=== PATIENT | female | born 1985 | race Caucasian/White ===

== ENCOUNTER 2017-09-01 05:34 | Outpatient (CLI) | payer BC ==
[~2017-09-01] VITALS: Ht 165.1 cm; Wt 63.5 kg
[~2017-09-01 05:34] MED LIST: DICY10CA26 PO; HYOS0.1216 PO; ONDA-42 SL
== END 2017-09-01 12:22 ==
LOC: PREOP 05:34
PROVIDERS: ATTEND Obstetrics & Gynecology
DX: Z01.818 Encounter for other preprocedural examination (principal); N87.1 Moderate cervical dysplasia; N81.2 Incomplete uterovaginal prolapse; N93.8 Other specified abnormal uterine and vaginal bleeding; D64.9 Anemia, unspecified

== ENCOUNTER 2017-09-05 11:08 | Day surgery (SDC) | payer BC ==
[~2017-09-05] VITALS: Ht 165.1 cm; Wt 63.5 kg
[2017-09-05 11:20] VITALS: BP 109/67
[2017-09-05] MEDS ORDERED: FAMOTIDINE 20MG/2ML IV (PEPCID) IV ONE (11:30)
[2017-09-05] MEDS ORDERED: CATHETER FLUSH 10 ML SYR IV PRN (11:30)
[2017-09-05] MEDS ORDERED: SCOPOLAMINE 1.5 MG (TRANSDERM-SCOP) PATCH TOP ONE (11:30)
[2017-09-05] MEDS ORDERED: ONDANSETRON 4 MG/2 ML (SDV) Z0FRAN IV ONE (11:30)
[2017-09-05] MEDS ORDERED: ceFAZolin 1 GM/NS 100 ML IVPB IV ONE ×2 (11:30)
[2017-09-05 11:52] LABS: BASOPHILS % (AUTO) 1 % (0-10); EOSINOPHILS # (AUTO) 0.2 10^3/uL (0.0-0.3); EOSINOPHILS % (AUTO) 3 % (0-10); HEMATOCRIT 37 % (35-52); HEMOGLOBIN 13.2 G/DL (11.5-16.0); LYMPHOCYTES # (AUTO) 1.8 X 10^3 (1.0-4.0); LYMPHOCYTES % (AUTO) 29 % (12-44); MEAN CORPUSCULAR HEMOGLOBIN 33 PG (25-34); MEAN CORPUSCULAR HGB CONC 36 G/DL (32-36); MEAN CORPUSCULAR VOLUME 93 FL (80-99); MEAN PLATELET VOLUME 11.4 FL (7.4-10.4); MONOCYTES # (AUTO) 0.7 X 10^3 (0.0-1.0); MONOCYTES % (AUTO) 11 % (0-12); NEUTROPHILS # (AUTO) 3.7 X 10^3 (1.8-7.8); NEUTROPHILS % (AUTO) 58 % (42-75); PLATELET COUNT 203 10^3/uL (130-400); RED CELL DISTRIBUTION WIDTH 12.3 % (10.0-14.5); WHITE BLOOD COUNT 6.3 10^3/uL (4.3-11.0)
[2017-09-05] MEDS ORDERED: LACTATED RINGERS 1,000 ML IV PRN (12:12)
[2017-09-05] MEDS ORDERED: ceFAZolin INJECTION 1,000 MG in NS (IVPB) 100 ML IV ONE (12:15)
[2017-09-05] MEDS ORDERED: ONDANSETRON 4 MG/2 ML (SDV) Z0FRAN ONE (12:18)
[2017-09-05] MEDS ORDERED: LIDOCAINE PF 2% 5 ML (XYLOCAINE) VIAL ONE (12:18)
[2017-09-05] MEDS ORDERED: MIDAZOLAM 2 MG/2 ML (VERSED) VIAL ONE (12:18)
[2017-09-05] MEDS ORDERED: ROCURONIUM 10 MG/ML 5 ML SYRINGE IV ONE (12:18)
[2017-09-05] MEDS ORDERED: proPOfol 200 MG/20 ML (DIPRIVAN) VIAL IV ONE (12:18)
[2017-09-05] MEDS ORDERED: fentaNYL INJECTION 100 MCG/2 ML AMP ONE ×3 (12:18→15:33)
[2017-09-05] MEDS ORDERED: SEVOFLURANE (ULTANE) 15 ML INHAL SOLN ONE ×8 (12:23→15:42)
[2017-09-05] MEDS ORDERED: DEXAMETHASONE 10 MG/ML (DECADRON) 1 ML VIAL ONE (12:23)
[2017-09-05] MEDS: LACTATED RINGERS 1,000 ML IV PRN ×2 (12:30→14:10)
[2017-09-05] MEDS ORDERED: BUP/EPI 0.5% 1:200,000 (SENSORCAINE) 30 ML VIAL ONE (12:34)
[2017-09-05] MEDS ORDERED: ESTRADIOL VAGINAL CREAM 42.5 GM (ESTRACE) VG ONE (12:36)
--- NOTE | 2017-09-05 13:28 | Progress Note-Pre Operative ---
Pre-Operative Progress Note H&P Reviewed The H&P was reviewed, patient examined and no changes noted. Date Seen by Provider: Sep 05, 2017 Time Seen by Provider: 13:27 Date H&P Reviewed: Sep 05, 2017 Time H&P Reviewed: 13: Pre-Operative Diagnosis: LESIA III, uterovaginal prolapse and stress urinary incontinence MOUNA AUGUSTE MD Sep 05, 2017 1:28 pm
--- NOTE | 2017-09-05 13:29 | Progress Note-Post Operative ---
Post-Operative Progess Note Surgeon (s)/Carbon Accountant (s) Surgeon MOUNA AUGUSTE MD Carbon Accountant: Courtney Dolan Pre-Operative Diagnosis LESIA III, uterovaginal prolapse and stress urinary incontinence Post-Operative Diagnosis Same with pathology pending Procedure & Operative Findings Date of Procedure 09/05/17 Procedure Performed/Findings Total laparoscopic hysterectomy with bilateral salpingectomy and with anterior posterior colporrhaphy and enterocele repair concurrent with Dr. Hill performing a pubovaginal sling and cystoscopy Anesthesia Type GETA Estimated Blood Loss Estimated blood loss (mL): 200cc Specimens/Packing Specimens Removed Uterus and fallopian tubes Packing: Kerlix to the vagina MOUNA AUGUSTE MD Sep 05, 2017 13:29
[2017-09-05] MEDS ORDERED: ONDANSETRON 4 MG/2 ML (SDV) Z0FRAN IVP PRN ×2 (13:30→16:00)
[2017-09-05] MEDS ORDERED: MEPERIDINE (DEMEROL) INJ 100 MG/ML IM PRN (13:30)
[2017-09-05] MEDS ORDERED: PROMETHAZINE INJ 25 MG/ML (PHENERGAN) AMP IM PRN (13:30)
[2017-09-05] MEDS ORDERED: GLYCOPYRROLATE 0.2 MG/ML (ROBINUL) 2 ML VIAL ONE (14:45)
[2017-09-05] MEDS ORDERED: NEOSTIGMINE 1 MG/ML 5 ML SYRINGE ONE (14:45)
--- NOTE | 2017-09-05 15:18 | Progress Note-Post Operative ---
Post-Operative Progess Note Surgeon (s)/Color Artist (s) Surgeon PADMINI CASTRO MD Color Artist: MOLINA Pre-Operative Diagnosis REDD Post-Operative Diagnosis SAME Procedure & Operative Findings Date of Procedure 09/05/17 Procedure Performed/Findings PVS AND CYSTOSCOPY Anesthesia Type GENERAL Estimated Blood Loss Estimated blood loss (mL): LESS THAN 50CC Specimens/Packing Specimens Removed N/A Packing: Kerlix to the vagina PADMINI CASTRO MD Sep 05, 2017 3:17 pm
[2017-09-05] MEDS ORDERED: morphine INJ 10 MG/ML 1ML (SYR OR VIAL) ONE (15:33)
[2017-09-05] MEDS ORDERED: HYDROmorphone (DILAUDID) 2 MG/ML VIAL ONE (15:33)
[2017-09-05] MEDS: morphine INJ 10 MG/ML 1ML (SYR OR VIAL) IVP PRN ×3 (15:54→16:06)
[2017-09-05] MEDS ORDERED: HYDROmorphone (DILAUDID) 2 MG/ML VIAL IVP PRN (16:00)
[2017-09-05] MEDS ORDERED: PROMETHAZINE INJ 25 MG/ML (PHENERGAN) AMP IVP PRN (16:00)
[2017-09-05] MEDS ORDERED: fentaNYL INJECTION 100 MCG/2 ML AMP IVP PRN (16:00)
[2017-09-05] MEDS: KETOROLAC 30 MG/ML VIAL IVP SCH ×2 (16:02→23:09)
[2017-09-05 16:55] VITALS: BP 93/55
[2017-09-05 17:10] VITALS: BP 96/52
[2017-09-05] MEDS ORDERED: DOCU100C37 PO (17:19)
[2017-09-05] MEDS ORDERED: OXYC-465 PO (17:19)
[2017-09-05] MEDS ORDERED: IBUP-1780 PO (17:19)
--- NOTE | 2017-09-05 17:21 | Discharge Instructions ---
Discharge Instructions Discharge Medications New, Converted or Re-Newed RX: RX on Chart Patient Instructions Patient Instructions: As directed Return to The Hospital For: As directed Activity & Diet Discharge Diet: No Restrictions Activity as Tolerated: No Orders-Post D/C & Referrals Follow Up Appt: Return to my clinic on Friday, September 08, 2017 at 930 a.m. for staple removal Call to make follow up appt. for patient in 4 weeks. Activity: Rest for 24 hours, than as tolerated. Wound Care: May remove Band-Aid tomorrow. Replace as desired. Keep incisions clean and dry. Wash daily with soap and water. Please call in RX to patient pharmacy. Diet: As tolerated-Clear Liquids only if nauseated. Tomorrow, may shower or tub bathe as desired. No driving for 24 hours, no alcoholic beverages for 24 hours, and nothing per vagina (no tampons, douching, or intercourse) for 8 weeks. Patient to return to the clinic as soon as possible for: Temperature greater than 101F, Severe Pain, Foul discharge from incision or vagina, Excessive Bleeding (more than a period). MOUNA AUGUSTE MD Sep 05, 2017 5:21 pm
[2017-09-05] MEDS ORDERED: MEPERIDINE (DEMEROL) INJ 100 MG/ML ONE (18:10)
[2017-09-05] MEDS: D5 LR IV SOLUTION 1,000 ML IV SCH (19:30)
--- NOTE | 2017-09-05 19:39 | OPERATIVE REPORT ---
DATE OF SERVICE: 09/05/2017 PREOPERATIVE DIAGNOSIS: On my part, stress urinary incontinence. POSTOPERATIVE DIAGNOSIS: On my part, stress urinary incontinence. OPERATION PERFORMED: Pubovaginal sling and cystoscopy. SURGEON: Padmini Castro MD VACUUM DRIER TENDER: Atul Hicks MD COMPLICATIONS: None. DESCRIPTION OF PROCEDURE: After Dr. Hicks performed the first part of the surgery that he will dictate, a Santos catheter was inserted draining clear urine. The pubovaginal sling device was passed on both sides. After 3 different attempts, I was finally able to get the sling to be in good position under the mid urethra with no twist and no tension. I removed the Santos catheter, performed cystoscopy to confirm the integrity of the bladder, ureters, urethra and presence of the sling under the mid urethra. I left the bladder at least half full. I removed the cystoscope and performed manual Valsalva maneuver that was negative. I re-inserted a Santos catheter draining clear fluid and Dr. Hicks proceeded with the rest of the surgery that he will dictate. Estimated blood loss for my part less than 50 mL. No records were placed. The patient tolerated the procedure and anesthesia well, was sent to recovery room in stable condition. Job ID: [id number] DocumentID: [id number] Dictated Date: 09/05/2017 15:20:26 Wagon Driver Salesperson Date: 09/05/2017 19:39:18 Dictated By: PADMINI CASTRO MD
[2017-09-05 20:00] VITALS: BP 82/50
--- NOTE | 2017-09-05 21:14 | OPERATIVE REPORT ---
DATE OF SERVICE: 09/05/2017 PREOPERATIVE DIAGNOSES: Cervical intraepithelial neoplasia 3, uterovaginal prolapse and stress urinary incontinence. POSTOPERATIVE DIAGNOSES: Cervical intraepithelial neoplasia 3, uterovaginal prolapse, stress urinary incontinence with pathology pending and endometriosis. OPERATIVE PROCEDURE: Total laparoscopic hysterectomy with bilateral salpingo-oophorectomy as well as destruction of endometriosis implants followed by anterior and posterior vaginal repairs with enterocele repair and with Dr. Martinez performing a pubovaginal sling and cystoscopy. OPERATIVE DESCRIPTION: With the patient in the supine position under satisfactory general anesthesia, she was repositioned in dorsal lithotomy position in the [facility] and prepped and draped in the usual fashion for abdominal and vaginal surgery. The urinary bladder was drained via Santos catheter to dependent drainage. A weighted speculum placed in the posterior fornix of vagina, cervix exposed and grasped anteriorly with single tooth tenaculum. Uterus was sounded to 9.5 cm with the uterine sound. The cervix was then serially dilated with Holden dilators to accommodate a Prerna II uterine manipulator, which was placed using a 6 mm x 8 cm uterine probe and a 30 mm colpotomy ring. The cervix was affixed to the manipulator with a suture of #1 Vicryl at 3 and 9 o'clock positions. The patient was brought in low dorsal lithotomy position. A 12 mm incision was made 3 cm superior to the umbilicus. A Veress needle was placed through that incision. Correct placement confirmed with a water drop test and the abdomen insufflated with 2.4 liters of carbon dioxide. The Veress needle was removed and a 12 mm Optiview laparoscopic port placed. The abdominal wall was transilluminated and ports of 8 mm were placed 9 cm lateral to the umbilicus on each side at the level of the umbilicus. All three port sites were infiltrated with 0.25% Marcaine with epinephrine prior to incision. The patient was now placed in Trendelenburg allowing the bowel to spill up out of the pelvis. There were some adhesions of the sigmoid to the left pelvic brim, which retained the sigmoid up to that area that was dealt with later. The operative instruments were now placed after fixing the manipulator to the ports. At the console using the vessel sealer on the right and a bipolar fenestrated grasper on the left, the pelvis was first examined. There was evidence of remote tubal sterilization. Both ovaries were normal. There were endometriosis implants, particularly in the left uteroovarian fossa. The uterus was mottled in appearance consistent with adenomyosis. There were some endometriosis in the right ovarian fossa as well. Both ureters were seemed to peristalse prior to initiating procedure and eventually during and after the procedure as well. Laparoscope was rotated. The appendix was identified. It was a normal vermiform appendix. Laparoscope was brought back to the pelvis. Using the vessel sealer, the right fallopian tube was grasped and elevated. The mesosalpinx was clamped, cauterized and divided using the vessel sealer. This continued stepwise across to the uteroovarian pedicle, which was then clamped, cauterized and divided itself also with the vessel sealer. The round ligament was treated in the same manner as was the broad ligament and the cardinal ligament. The same procedure performed on the left, allowing for removal of both fallopian tubes and conservation of both ovaries. The previously mentioned adhesions of the sigmoid to the left pelvic brim were taken down with the vessel sealer as well. These were light and filmy adhesions fairly minimal dissection was required. The anterior lower uterine segment now was exposed and replacing the vessel sealer with monopolar jasmin. The anterior lower uterine segment peritoneum was divided with those jasmin. The vesicovaginal space was developed allowing the bladder to slide down off of the cervix and down off of the proximal vagina. Colpotomy incision was made starting at 12 o'clock position onto the colpotomy ring. That was continued circumferentially until the entire colpotomy ring was exposed and on completion of that, the uterus with the tubes still attached was extracted through the vagina. The vaginal cuff was closed with two sutures of V-Loc barbed sutures starting first on the right angle and continued to the midportion of the cuff and then from the left angle to the mid portion, taking care to include the cardinal ligament pedicles and uterine vessel pedicles into the initiation of that closure. Hemostasis was complete. Good reapproximation was achieved. The pelvis was irrigated and examined for hemostasis. The endometriosis implants in both ovarian fossa were touched with electrocautery to destroy them. With the procedure complete, the operative instruments were removed under direct vision as were the ports. The abdomen was evacuated and insufflating gas in the process of removing the ports. Skin incisions were closed with troy. The fascia at the umbilical incision was closed with [id number] suture of 2-0 Vicryl. Sponge and needle counts were correct at this point and estimated blood loss was minimal. The patient was now repositioned for the anterior and posterior vaginal repairs. Anterior repair was initiated by placing Tanya clamps on the anterior vaginal wall just distal to the midpoint. The vaginal wall was opened in the midline with Metzenbaum scissors. That opening was continued to approximately 1.5 cm from the urethral meatus and almost to the apex of the vagina. The vesicovaginal space was developed dissecting the bladder off the muscularis of the vagina back to pubic rami bilaterally. Endopelvic fascia and bladder wall were plicated with 2-0 Vicryl suture elevating the bladder and lengthening the urethra. At this point, I yielded care of the patient to Dr. Martinez. I remained to assist. Dr. Martinez performed a pubovaginal sling and cystoscopy. He will dictate that portion. On completion of Dr. Martinez's portion of the procedure, I resumed care of the patient, resected redundant anterior vaginal wall muscularis mucosa and then closed the vaginal wall with a running locked suture of 3-0 Vicryl Rapide. Good support was evident and good reapproximation was achieved. Good hemostasis was achieved. Posterior repair was now performed by placing Tanya clamps on the perineum and the hymenal ring at 5 to 7 o'clock positions and inverted triangle of skin was removed from the perineal body and upright triangle from the posterior vaginal floor. The rectovaginal space was entered sharply and dissected bluntly to the apex of the vagina. The rectovaginal space was explored for an enterocele that was a small one that was reduced and plicated with a 2-0 Vicryl pursestring suture obliterating the enterocele. The rectovaginal space itself was obliterated with additional suture of 2-0 Vicryl and the perineal body was restored with sutures of 2-0 Vicryl. Redundant posterior vaginal wall muscularis mucosa was removed sharply and then the vaginal wall was closed with a running lock suture of 3-0 Vicryl Rapide. With that closure, continuing down to the hymenal ring and pass the hymenal ring on the perineal body then back up subcutaneous to the hymenal ring where the suture was tied. Digital rectal exam confirmed no stricture or stenosis of the rectum and no sutures into or through the rectal mucosa. The vagina was now filled with Estrace vaginal cream and a pack of Kerlix gauze was placed. The Santos catheter was left to dependent drainage. Sponge and needle counts were again at this point correct. Estimated blood loss for the entire case was now around 200 mL. The patient tolerated the procedure well and was uneventfully awakened from her general anesthesia and transferred to the recovery room in stable condition. The sponge and needle counts again were correct. Job ID: [id number] DocumentID: [id number] Dictated Date: 09/05/2017 16:20:12 Specialty Transformer Assembler Date: 09/05/2017 21:13:21 Dictated By: MOUNA AUGUSTE MD
[2017-09-06] VITALS: BP 86/53
[2017-09-06] MEDS: D5 LR IV SOLUTION 1,000 ML IV SCH ×2 (03:19→07:55)
[2017-09-06] MEDS: oxyCODONE/APAP 10/325MG (PERCOCET 10) TABLET PO PRN ×5 (03:19→23:03)
[2017-09-06 04:00] VITALS: BP 86/50
[2017-09-06] MEDS: KETOROLAC 30 MG/ML VIAL IVP SCH ×2 (05:14→12:04)
--- NOTE | 2017-09-06 08:11 | Progress Note-Standard ---
Standard Progress Note Progress Notes/Assess & Plan Date Seen by Provider: Sep 06, 2017 Time Seen by Provider: 08:10 Progress/Assessment & Plan This patient without complaint. She is ambulating. Patient is tolerating oral intake well. Santos catheter is removed at about 6 a.m. she has not yet voided. Patient denies headache, denies shortness of breath, denies nausea vomiting, and denies chest pain. Vital Signs Date Time Temp Pulse Resp B/P (MAP) Pulse Ox O2 Delivery O2 Flow Rate FiO2 09/06/17 04:00 99.3 52 18 86/50 (62) 97 Room Air 09/06/17 00:00 97.1 58 18 86/53 (64) 98 Room Air 09/05/17 20:00 98.4 94 18 82/50 (61) 96 Room Air 09/05/17 19:39 Room Air 09/05/17 17:10 98.4 71 20 96/52 (67) 95 Room Air 09/05/17 16:55 98.4 59 18 93/55 (68) 96 Room Air 09/05/17 11:20 99.9 66 18 109/67 (81) 98 Room Air I & O 09/06/17 07:00 Intake Total 2800 ml Output Total 790 ml Balance 2010 ml Signs are stable. Patient is afebrile. The abdomen is benign. Extreme show clubbing cyanosis. There is no Homans sign. Assessment and plan is operative day number 1 doing well. Plan is for routine convalescence care with discharge home when patient is ambulating, voiding, tolerating by mouth well, and pain control is adequate. MOUNA AUGUSTE MD Sep 06, 2017 8:11 am
[2017-09-06 08:19] VITALS: BP 87/50
[2017-09-06] MEDS: BENZOCAINE/MENTHOL (DERMOPLAST) 56 ML CAN TP PRN (08:19)
[2017-09-06] MEDS: DOCUSATE SODIUM 100 MG (COLACE) CAP PO SCH ×2 (08:19→19:33)
[2017-09-06] MEDS ORDERED: INFLUENZA TRIvalent 2017-2018 0.5 ML/45 MCG SYR IM ONE (10:00)
[2017-09-06] MEDS: PHENAZOPYRIDINE 100 MG (PYRIDIUM) TABLET PO SCH ×3 (11:22→19:33)
[2017-09-06] MEDS ORDERED: IBUPROFEN 800 MG (MOTRIN) TAB PO ONE (11:53)
[2017-09-06] MEDS: IBUPROFEN 800 MG (MOTRIN) TAB PO SCH ×3 (12:03→23:43)
[2017-09-06 12:42] VITALS: BP 89/53
[2017-09-06 17:57] VITALS: BP 83/45
[2017-09-06 23:11] VITALS: BP 85/46
[2017-09-07] MEDS: oxyCODONE/APAP 10/325MG (PERCOCET 10) TABLET PO PRN ×2 (03:51→08:48)
[2017-09-07 06:00] VITALS: BP 85/44
[2017-09-07] MEDS: IBUPROFEN 800 MG (MOTRIN) TAB PO SCH ×2 (06:09→12:29)
[2017-09-07] MEDS: DOCUSATE SODIUM 100 MG (COLACE) CAP PO SCH (08:47)
[2017-09-07] MEDS: BENZOCAINE/MENTHOL (DERMOPLAST) 56 ML CAN TP PRN (08:48)
[2017-09-07] MEDS: PHENAZOPYRIDINE 100 MG (PYRIDIUM) TABLET PO SCH (08:48)
[2017-09-07 08:49] VITALS: BP 82/47
--- NOTE | 2017-09-07 09:20 | Progress Note-Standard ---
Standard Progress Note Progress Notes/Assess & Plan Date Seen by Provider: Sep 07, 2017 Time Seen by Provider: 09:18 Progress/Assessment & Plan This patient without complaint. She is ambulating. Patient is tolerating oral intake well. Santos catheter is removed at about 6 a.m. she has not yet voided. Patient denies headache, denies shortness of breath, denies nausea vomiting, and denies chest pain. Vital Signs Date Time Temp Pulse Resp B/P (MAP) Pulse Ox O2 Delivery O2 Flow Rate FiO2 09/06/17 04:00 99.3 52 18 86/50 (62) 97 Room Air 09/06/17 00:00 97.1 58 18 86/53 (64) 98 Room Air 09/05/17 20:00 98.4 94 18 82/50 (61) 96 Room Air 09/05/17 19:39 Room Air 09/05/17 17:10 98.4 71 20 96/52 (67) 95 Room Air 09/05/17 16:55 98.4 59 18 93/55 (68) 96 Room Air 09/05/17 11:20 99.9 66 18 109/67 (81) 98 Room Air I & O 09/06/17 07:00 Intake Total 2800 ml Output Total 790 ml Balance 2010 ml Signs are stable. Patient is afebrile. The abdomen is benign. Extreme show clubbing cyanosis. There is no Homans sign. Assessment and plan is operative day number 1 doing well. Plan is for routine convalescence care with discharge home when patient is ambulating, voiding, tolerating by mouth well, and pain control is adequate. September 07, 2017 Patient without complaint except for some right-sided right lower quadrant pain She is ambulating, she is voiding to some extent however has had significant postvoid residuals so far. Dr. Hill is managing the bladder. Patient has good pain control tolerating oral intake well. Plan is for discharge home on this date with follow-up in clinic Vital Signs Date Time Temp Pulse Resp B/P (MAP) Pulse Ox O2 Delivery O2 Flow Rate FiO2 09/07/17 06:00 98.7 44 16 85/44 (58) 95 Room Air 09/06/17 23:11 98.7 43 16 85/46 (59) 97 Room Air 09/06/17 17:57 98.4 46 16 83/45 (58) 99 Room Air 09/06/17 12:42 98.4 46 16 89/53 (65) 99 Room Air I & O 09/07/17 07:00 Intake Total 3310 ml Output Total 2175 ml Balance 1135 ml Vital signs are stable. Patient is afebrile. Abdomen is benign. Extremities show clubbing cyanosis. There is no Homans sign. Assessment and plan postoperative day number 2 doing well. Patient has some right-sided pain that may just be postoperative. Dr. Hill has initiated evaluation lab work of that pain. Plan will be be discharged home when patient is ambulating voiding and her pain is resolved MOUNA AUGUSTE MD Sep 07, 2017 9:20 am
[2017-09-07 09:54] LABS: BASOPHILS % (AUTO) 0 % (0-10); EOSINOPHILS % (AUTO) 0 % (0-10); HEMATOCRIT 29 % (35-52); HEMOGLOBIN 9.6 G/DL (11.5-16.0); LYMPHOCYTES # (AUTO) 3.1 X 10^3 (1.0-4.0); LYMPHOCYTES % (AUTO) 28 % (12-44); MEAN CORPUSCULAR HEMOGLOBIN 32 PG (25-34); MEAN CORPUSCULAR HGB CONC 33 G/DL (32-36); MEAN CORPUSCULAR VOLUME 98 FL (80-99); MEAN PLATELET VOLUME 11.5 FL (7.4-10.4); MONOCYTES # (AUTO) 1.1 X 10^3 (0.0-1.0); MONOCYTES % (AUTO) 10 % (0-12); NEUTROPHILS # (AUTO) 6.8 X 10^3 (1.8-7.8); NEUTROPHILS % (AUTO) 62 % (42-75); PLATELET COUNT 149 10^3/uL (130-400); RED BLOOD COUNT 2.98 10^6/uL (4.35-5.85); RED CELL DISTRIBUTION WIDTH 12.4 % (10.0-14.5); WHITE BLOOD COUNT 11.1 10^3/uL (4.3-11.0)
[2017-09-07 10:09] LABS: BUN/CREATININE RATIO 11; CALCIUM 8.7 MG/DL (8.5-10.1); CARBON DIOXIDE 26 MMOL/L (21-32); CHLORIDE 105 MMOL/L (98-107); GFR ESTIMATED > 60; GLUCOSE 90 MG/DL (70-105); POTASSIUM 3.8 MMOL/L (3.6-5.0); SODIUM 138 MMOL/L (135-145)
[2017-09-07] MEDS ORDERED: NS IV 1000 ML 1,000 ML ONE (10:30)
[2017-09-07 10:53] LABS: ALANINE AMINOTRANSFERASE 12 U/L (0-55); ALBUMIN 3.7 GM/DL (3.2-4.5); ALKALINE PHOSPHATASE 29 U/L (40-136); BILIRUBIN,TOTAL 0.2 MG/DL (0.1-1.0); BUN/CREATININE RATIO 13; CALCIUM 8.7 MG/DL (8.5-10.1); CARBON DIOXIDE 24 MMOL/L (21-32); CHLORIDE 105 MMOL/L (98-107); CREATININE SERUM 0.78 MG/DL (0.60-1.30); GFR ESTIMATED > 60; GLUCOSE 91 MG/DL (70-105); POTASSIUM 3.8 MMOL/L (3.6-5.0); SODIUM 138 MMOL/L (135-145); TOTAL PROTEIN 5.8 GM/DL (6.4-8.2)
[2017-09-07] MEDS ORDERED: NS 250 ML (IVPB) BAG IV ONE (11:00)
[2017-09-07] MEDS ORDERED: IOHEXOL 350 MG/ML 100 ML (OMNIPAQUE 350) VIAL IV ONE (11:00)
[2017-09-07] MEDS ORDERED: NS IV 1000 ML 1,000 ML IV SCH (11:15)
--- NOTE | 2017-09-07 11:41 | Diagnostic Imaging Report ---
PROCEDURE: CT abdomen and pelvis with and without contrast. TECHNIQUE: Precontrast acquisitions were acquired through the abdomen and pelvis. Multiple contiguous axial images were obtained through the abdomen and pelvis after the administration of intravenous contrast. INDICATION: Right flank pain. Decrease in hemoglobin, status post surgery. The liver, gallbladder and bile ducts are normal. The spleen, pancreas and adrenals are normal. The kidneys, ureters and bladder are normal. There is some free fluid in the dependent portion of pelvis that is of low density and does not appear to be a hematoma. There is no free fluid in the abdomen. There are bubbles of free air scattered throughout the abdomen. No acute bowel abnormality is seen. IMPRESSION: Postoperative abdomen and pelvis shows small amount of fluid in the pelvis. No hematoma or other acute abnormality is seen. Dictated by: Dictated on workstation # [id number]
[2017-09-07 12:26] VITALS: BP 88/53
[2017-09-07] MEDS ORDERED: PHEN-826 PO (12:57)
== END 2017-09-07 13:40 | disposition home or self-care (01) ==
LOC: SDC 11:08 → WS 16:55 → SDC 09-07 13:40
PROVIDERS: ATTEND Obstetrics & Gynecology
DX: D06.9 Carcinoma in situ of cervix, unspecified (principal); N81.4 Uterovaginal prolapse, unspecified; N39.3 Stress incontinence (female) (male); N80.0 Endometriosis of uterus; N80.3 Endometriosis of pelvic peritoneum; N80.2 Endometriosis of fallopian tube; D25.1 Intramural leiomyoma of uterus; N83.8 Other noninflammatory disorders of ovary, fallopian tube and broad ligament; R10.31 Right lower quadrant pain; F17.210 Nicotine dependence, cigarettes, uncomplicated
CPT/HCPCS: 36415; 74178; 80048; 80053; 84703; 85025; 86850; 86900; 86901; 87081; 94664; 94760

== ENCOUNTER 2017-09-10 14:49 | Emergency (ER) | payer BC ==
[~2017-09-10] VITALS: Ht 165.1 cm; Wt 63.5 kg
[~2017-09-10 14:49] MED LIST changes: +DOCU100C37 PO; +IBUP-1780 PO; +OXYC-465 PO; +PHEN-826 PO
--- NOTE | 2017-09-10 15:50 | ED Neurological Problem ---
General Chief Complaint: Neurological Problems Stated Complaint: LEG NUMBNESS, L SIDE NUMBNESS Nursing Triage Note: c/o numbness to right groin radiating down to left lower leg (mostly anterior). Pt had a hysterectomy with bladder sling on Friday. Onset last night. Nursing Sepsis Screen: No Definite Risk Source: patient Exam Limitations: no limitations History of Present Illness Date Seen by Provider: Sep 10, 2017 Time Seen by Provider: 15:50 Initial Comments 32-year-old female patient presents to the emergency department with complaints of left groin numbness radiating down the left lower extremity. Patient reports sudden onset last night when she had gotten up to go to the bathroom. Patient underwent hysterectomy with bladder sling by Dr. Hicks and Dr. Castro on 09/05/17. Patient reports chills and possible low-grade fevers beginning the day after surgery. Does complain of a posterior headache which started this a.m. Patient was seen by Dr. Castro yesterday with urinalysis performed in the office. Timing/Duration: increasing (worsening numbness of the left lower extremity), other (onset last night) Associated Symptoms: No confusion, No fatigue, fever/chills, No insomnia, No loss of consciousness, No muscle spasms, No nausea/vomiting, numbness in legs/ feet (numbness of the left lower extremity and left upper extremity), No paresthesia, No ringing in ears, No seizures, No sleepy, No slurred speech, trouble walking, No vision changes, weakness (left lower extremity weakness) Allergies and Home Medications Allergies Coded Allergies: No Known Drug Allergies (Unverified , 09/01/17) Home Medications Docusate Sodium 100 Mg Capsule, 100 MG PO BID Prescribed by: MOUNA DOMINGUEZ on 09/05/17 171 Ibuprofen 800 Mg Tablet, 800 MG PO Q6HR Prescribed by: MOUNA DOMINGUEZ on 09/05/17 171 Oxycodone HCl/Acetaminophen 1 Each Tablet, 1-2 TAB PO Q4HR PRN for PAIN- MODERATE TO SEVERE Prescribed by: MOUNA DOMINGUEZ on 09/05/17 171 Phenazopyridine HCl 100 Mg Tablet, 200 MG PO TID Prescribed by: LIZZETH VAZQUEZ on 09/07/17 1257 Constitutional: see HPI Eyes: No Symptoms Reported Ears, Nose, Mouth, Throat: no symptoms reported Respiratory: No cough, No dyspnea on exertion, No orthopnea, No short of breath Cardiovascular: No chest pain, No edema, No palpitations, No syncope Gastrointestinal: abdominal pain (generalized abdominal pain.), No constipation , No diarrhea, No melena, No nausea, No vomiting, No other Genitourinary: No decreased output, No dysuria, No frequency, No hematuria, No hesitancy, No incontinence, No pain Musculoskeletal: see HPI, No back pain, No neck pain Skin: no symptoms reported Psychiatric/Neurological: See HPI, Denies Cognitive Dysfunction, Headache, Numbness, Denies [place] Seizures, Denies Tonic Clonic Seizures, Unable to Move Lower Ext (patient reports only being able to move the LLE slightly.), Denies Unable to Move Upper Ext, Weakness (LLE and LUE weakness) All Other Systems Reviewed Negative Unless Noted: Yes (Negative excepted noted.) Past Czgmrrn-Vglbks-Dgwqwg Hx Patient Social History Alcohol Use: Denies Use Recreational Drug Use: No Smoking Status: Current Everyday Smoker Type Used: Cigarettes Recent Foreign Travel: No Contact w/Someone Who Travel: No Recent Infectious Disease Expo: No Recent Hopitalizations: No Immunizations Up To Date Tetanus Booster (TDap): Unknown PED Vaccines UTD: No Seasonal Allergies Seasonal Allergies: Yes Surgeries History of Surgeries: Yes Surgeries: Bladder Surgery ((sling)), Hysterectomy, Tubal Ligation Respiratory History of Respiratory Disorde: No Cardiovascular History of Cardiac Disorders: No Neurological History of Neurological Disord: Yes Neurological Disorders: Headaches /Migraines Reproductive System : Yes Hx Reproductive Disorders: Yes (LESIA II, CYSYTOCELE) Sexually Transmitted Disease: No HIV/AIDS: No Female Reproductive Disorders: Menstrual Problems, Endometriosis, 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 Genitourinary History of Genitourinary Disor: No Gastrointestinal History of Gastrointestinal Di: No Musculoskeletal History of Musculoskeletal Dis: Yes Musculoskeletal Disorders: Chronic Back Pain Endocrine History of Endocrine Disorders: No HEENT Loss of Vision: Bilateral Hearing Impairment: Denies Blood Transfusions Adverse Reaction to a Blood Tr: No (N/A) Reviewed Nursing Assessment Reviewed/Agree w Nursing PMH: Yes Family Medical History Significant Family History: No Pertinent Family Hx Physical Exam Vital Signs Vital Signs - First Documented 09/10/17 15:34 Temp 98.5 Pulse 82 Resp 16 B/P (MAP) 128/72 (90) Pulse Ox 98 Capillary Refill : Greater Than 3 Seconds Progress/Results/Core Measures Results/Orders Lab Results Laboratory Tests Test 09/10/17 16:25 09/10/17 16:40 Range/Units Urine Color YELLOW Urine Clarity CLEAR Urine pH 8 5-9 Urine Specific [place] 1.015 L 1.016-1.022 Urine Protein NEGATIVE NEGATIVE Urine Glucose (UA) NEGATIVE NEGATIVE Urine Ketones NEGATIVE NEGATIVE Urine Nitrite POSITIVE H NEGATIVE Urine Bilirubin NEGATIVE NEGATIVE Urine Urobilinogen 1 NORMAL MG/DL Urine Leukocyte Esterase 3+ H NEGATIVE Urine RBC (Auto) 3+ H NEGATIVE Urine RBC 5-10 H /HPF Urine WBC 10-25 H /HPF Urine Squamous Epithelial Cells 0-2 /HPF Urine Crystals NONE /LPF Urine Bacteria FEW H /HPF Urine Casts NONE /LPF Urine Mucus NEGATIVE /LPF Urine Culture Indicated YES White Blood Count 10.4 4.3-11.0 10^3/uL Red Blood Count 3.34 L 4.35-5.85 10^6/uL Hemoglobin 10.8 L 11.5-16.0 G/DL Hematocrit 31 L 35-52 % Mean Corpuscular Volume 93 80-99 FL Mean Corpuscular Hemoglobin 32 25-34 PG Mean Corpuscular Hemoglobin Concent 35 32-36 G/DL Red Cell Distribution Width 11.9 10.0-14.5 % Platelet Count 176 130-400 10^3/uL Mean Platelet Volume 11.4 H 7.4-10.4 FL Neutrophils (%) (Auto) 71 42-75 % Lymphocytes (%) (Auto) 16 12-44 % Monocytes (%) (Auto) 12 0-12 % Eosinophils (%) (Auto) 2 0-10 % Basophils (%) (Auto) 0 0-10 % Neutrophils # (Auto) 7.4 1.8-7.8 X 10^3 Lymphocytes # (Auto) 1.6 1.0-4.0 X 10^3 Monocytes # (Auto) 1.2 H 0.0-1.0 X 10^3 Eosinophils # (Auto) 0.2 0.0-0.3 10^3/uL Basophils # (Auto) 0.0 0.0-0.1 10^3/uL Sodium Level 141 135-145 MMOL/L Potassium Level 3.6 3.6-5.0 MMOL/L Chloride Level 107 98-107 MMOL/L Carbon Dioxide Level 29 21-32 MMOL/L Anion Gap 5 5-14 MMOL/L Blood Urea Nitrogen 6 L 7-18 MG/DL Creatinine 0.65 0.60-1.30 MG/DL Estimat Glomerular Filtration Rate > 60 BUN/Creatinine Ratio 9 Glucose Level 77 70-105 MG/DL Calcium Level 9.1 8.5-10.1 MG/DL Total Bilirubin 0.6 0.1-1.0 MG/DL Aspartate Amino Transf (AST/SGOT) 19 5-34 U/L Alanine Aminotransferase (ALT/SGPT) 16 0-55 U/L Alkaline Phosphatase 31 L 40-136 U/L Total Protein 6.2 L 6.4-8.2 GM/DL Albumin 3.9 3.2-4.5 GM/DL Lipase 11 8-78 U/L My Orders Orders - BERRY TRUJILLO Cbc With Automated Diff (09/10/17 16:10) Comprehensive Metabolic Panel (09/10/17 16:10) Lipase (09/10/17 16:10) Ua Culture If Indicated (09/10/17 16:10) Saline Lock/Iv-Start (09/10/17 16:10) Ct Abdomen/Pelvis W (09/10/17 16:10) Ct Head Wo (09/10/17 16:10) Ns Iv 1000 Ml (Sodium Chloride 0.9%) (09/10/17 16:10) Iohexol Injection (Omnipaque 350 Mg/Ml 1 (09/10/17 16:30) Di Iv Start (Assessment) .on IV start (09/10/17 16:20) Ns (Ivpb) (Sodium Chloride 0.9%) (09/10/17 16:30) Pharmacy Communication (Pharmacy Communi (09/10/17 16:20) Urine Culture (09/10/17 16:25) Us Gallbladder 8[address] (09/10/17 18:19) Ua Culture If Indicated (09/10/17 18:20) Methylnaltrexone Injection (Relistor Inj (09/10/17 19:00) Ceftriaxone Injection (Rocephin Injectio (09/10/17 19:00) Ns Iv 1000 Ml (Sodium Chloride 0.9%) (09/10/17 18:56) Medications Given in ED Current Medications Medications Dose Ordered Sig/Tila Route Start Time Stop Time Status Last Admin Dose Admin Ceftriaxone Sodium 1000 mg/ Sodium Chloride 100 ml @ 200 mls/hr ONCE ONCE IV 09/10/17 19:00 09/10/17 19:29 DC 09/10/17 19:11 200 MLS/HR Iohexol 100 ml ONCE ONCE IV 09/10/17 16:30 09/10/17 16:31 DC 09/10/17 16:52 100 ML Methylnaltrexone Cecilia 12 mg ONCE ONCE SQ 09/10/17 19:00 09/10/17 19:01 DC 09/10/17 19:11 12 MG Sodium Chloride 250 ml ONCE ONCE IV 09/10/17 16:30 09/10/17 16:31 DC 09/10/17 16:52 80 ML Sodium Chloride 1,000 ml @ 0 mls/hr Q0M ONCE IV 09/10/17 16:10 09/10/17 16:13 DC 09/10/17 19:01 0 MLS/HR Vital Signs/I&O Vital Sign - Last 12Hours 09/10/17 15:34 Temp 98.5 Pulse 82 Resp 16 B/P (MAP) 128/72 (90) Pulse Ox 98 Blood Pressure Mean: 90 Departure Communication (Admissions) Progress Notes [address] Batista [address] Hicks [address] Castro Impression Impression: Primary Impression: Acute and chronic cholecystitis Additional Impressions: Acalculous cholecystitis Postoperative urinary retention Status post hysterectomy History of pubovaginal sling Urinary tract infection Disposition: HOME, SELF-CARE Condition: Improved Departure-Patient Inst. Decision time for Depature: 21:01 Referrals: MOUNA HICKS MD, TAKAAKI MD NO,LOCAL PHYSICIAN (PCP) Primary Care Physician PADMINI CASTRO MD Patient Instructions: Cholecystectomy (DC), Low Cholesterol, Saturated Fat, and Trans Fat Diet , Urinary Tract Infection, Adult (DC) Add. Discharge Instructions: All discharge instructions reviewed with patient and/or family. Voiced understanding. -Medications as instructed. -Continue the ibuprofen as instructed by Dr. Hicks. -Clear liquid diet until symptoms improve, then increase diet to a strict low- fat diet. -Continue self-catheterization as instructed by Dr. Castro for recurrent left lower extremity symptoms or bladder discomfort. -Follow-up with Dr. Hicks and Dr. Castro as previously scheduled. -Follow-up with Dr. Batista on Friday (09/12/17) at 11 a.m. for recheck and discussion of scheduling an outpatient gallbladder removal. -Return to the emergency department for worsened symptoms or any other concerns. Scripts Oxycodone HCl/Acetaminophen (Endocet 5-325 Tablet) 1 Each Tablet 1 EACH PO Q4H Y for PAIN-MODERATE TO SEVERE, #14 TAB 0 Refills Prov: BERRY TRUJILLO 09/10/17 Ondansetron (Ondansetron Odt) 8 Mg Tab.rapdis 8 MG PO Q6H Y for NAUSEA/VOMITING-1ST LINE, #10 TAB 0 Refills Prov: BERRY TRUJILLO 09/10/17 Metronidazole (Metronidazole) 500 Mg Tablet 500 MG PO TID, #30 TAB 0 Refills Prov: BERRY TRUJILLO 09/10/17 Ciprofloxacin HCl (Ciprofloxacin HCl) 500 Mg Tablet 500 MG PO BID, #20 TAB 0 Refills Prov: BERRY TRUJILLO 09/10/17 BERRY TRUJILLO Sep 10, 2017 15:50
[2017-09-10] MEDS ORDERED: NS IV 1000 ML 1,000 ML IV ONE (16:10)
[2017-09-10] MEDS ORDERED: IOHEXOL 350 MG/ML 100 ML (OMNIPAQUE 350) VIAL IV ONE (16:30)
[2017-09-10] MEDS ORDERED: NS 250 ML (IVPB) BAG IV ONE (16:30)
[2017-09-10 16:37] LABS: BILIRUBIN,URINE NEGATIVE (NEGATIVE); CLARITY,URINE CLEAR; COLOR,URINE YELLOW; GLUCOSE, URINE (UA) NEGATIVE (NEGATIVE); KETONES,URINE NEGATIVE (NEGATIVE); LEUKOCYTE ESTERASE ,URINE 3+ (NEGATIVE); NITRITE,URINE POSITIVE (NEGATIVE); PH,URINE 8 (5-9); PROTEIN,URINE NEGATIVE (NEGATIVE); UROBILINOGEN,URINE 1 MG/DL (NORMAL)
[2017-09-10 16:44] LABS: BACTERIA,URINE FEW /HPF; SQUAMOUS EPITHELIAL CELL,UR 0-2 /HPF
[2017-09-10 16:51] LABS: BASOPHILS % (AUTO) 0 % (0-10); EOSINOPHILS # (AUTO) 0.2 10^3/uL (0.0-0.3); EOSINOPHILS % (AUTO) 2 % (0-10); HEMATOCRIT 31 % (35-52); HEMOGLOBIN 10.8 G/DL (11.5-16.0); LYMPHOCYTES # (AUTO) 1.6 X 10^3 (1.0-4.0); LYMPHOCYTES % (AUTO) 16 % (12-44); MEAN CORPUSCULAR HEMOGLOBIN 32 PG (25-34); MEAN CORPUSCULAR HGB CONC 35 G/DL (32-36); MEAN CORPUSCULAR VOLUME 93 FL (80-99); MEAN PLATELET VOLUME 11.4 FL (7.4-10.4); MONOCYTES # (AUTO) 1.2 X 10^3 (0.0-1.0); MONOCYTES % (AUTO) 12 % (0-12); NEUTROPHILS # (AUTO) 7.4 X 10^3 (1.8-7.8); NEUTROPHILS % (AUTO) 71 % (42-75); PLATELET COUNT 176 10^3/uL (130-400); RED BLOOD COUNT 3.34 10^6/uL (4.35-5.85); RED CELL DISTRIBUTION WIDTH 11.9 % (10.0-14.5); WHITE BLOOD COUNT 10.4 10^3/uL (4.3-11.0)
--- NOTE | 2017-09-10 17:10 | Diagnostic Imaging Report ---
PROCEDURE: CT head without contrast. TECHNIQUE: Multiple contiguous axial images were obtained through the brain without the use of intravenous contrast. INDICATION: Head pressure on the left. COMPARISON: No prior examinations are available for comparison. FINDINGS: The ventricles and sulci are within normal limits. There is no hydrocephalus or cerebral edema. There is no midline shift or mass effect. There is no intracranial mass, hemorrhage, or extra-axial fluid collection. The visualized paranasal sinuses and mastoid air cells are clear. There are no regional areas of decreased attenuation appreciated to suggest an acute CVA. IMPRESSION: No acute intracranial abnormality. Dictated by: Dictated on workstation # [id number]
[2017-09-10 17:14] LABS: ALANINE AMINOTRANSFERASE 16 U/L (0-55); ALBUMIN 3.9 GM/DL (3.2-4.5); ALKALINE PHOSPHATASE 31 U/L (40-136); BILIRUBIN,TOTAL 0.6 MG/DL (0.1-1.0); BUN/CREATININE RATIO 9; CALCIUM 9.1 MG/DL (8.5-10.1); CARBON DIOXIDE 29 MMOL/L (21-32); CHLORIDE 107 MMOL/L (98-107); CREATININE SERUM 0.65 MG/DL (0.60-1.30); GFR ESTIMATED > 60; GLUCOSE 77 MG/DL (70-105); LIPASE 11 U/L (8-78); POTASSIUM 3.6 MMOL/L (3.6-5.0); SODIUM 141 MMOL/L (135-145); TOTAL PROTEIN 6.2 GM/DL (6.4-8.2)
--- NOTE | 2017-09-10 17:21 | Diagnostic Imaging Report ---
PROCEDURE: CT abdomen and pelvis with contrast. TECHNIQUE: Multiple contiguous axial images were obtained through the abdomen and pelvis after administration of intravenous contrast. INDICATION: Left leg numbness, weakness, recent hysterectomy and bladder sling. COMPARISON: 09/07/2017. FINDINGS: There has been reduction in presumed postoperative pneumoperitoneum when compared to the prior. Pelvic free fluid shows slight reduction in volume and decreased complexity. No loculated fluid collection. The urinary bladder is unremarkable. No acute osseous abnormality. No paraspinal mass or fluid collection. Urinary tracts are unobstructed. Delayed images show no urinary tract contrast extravasation. The urinary bladder appears intact. No vascular contrast extravasation. No bowel ileus or bowel obstruction. Lumbar spinal canal is patent. No appreciable foraminal encroachment. Slight basilar atelectasis. IMPRESSION: Decreased postoperative air and fluid. No bowel, biliary or urinary tract obstruction. No loculated fluid collection or abscess. No mass effect, paraspinal or perineural abnormality to explain the presenting complaint of left leg numbness. Dictated by: Dictated on workstation # [id number]
[2017-09-10] MEDS ORDERED: NS IV 1000 ML 1,000 ML ONE (18:56)
[2017-09-10] MEDS ORDERED: cefTRIAXone INJECTION 1,000 MG in NS (IVPB) 100 ML IV ONE (19:00)
[2017-09-10] MEDS ORDERED: METHYLNALTREXONE 12 MG/0.6 ML (RELISTOR) VIAL SQ ONE (19:00)
--- NOTE | 2017-09-10 20:29 | Diagnostic Imaging Report ---
PROCEDURE: US Gallbladder. TECHNIQUE: Multiple real-time grayscale images were obtained over the right upper quadrant in various projections. INDICATION: Right upper quadrant pain after recent hysterectomy. FINDINGS: The liver is normal in size without focal lesions. There is no cholelithiasis. There is some focal gallbladder wall thickening up to 3.3 mm with a small amount of pericholecystic fluid. There is no biliary duct dilatation. The common bile duct measures less than 5 mm. Pancreas is not well-seen due to bowel gas. Right kidney is normal. There is some right upper quadrant discomfort during the exam. IMPRESSION: Focal gallbladder wall thickening with some pericholecystic fluid. There is also right upper quadrant discomfort during the exam. There is no evidence of cholelithiasis although the possibility of acute acalculous cholecystitis cannot be excluded. Recommend clinical correlation. Dictated by: Dictated on workstation # [id number]
[2017-09-10] MEDS ORDERED: CIPR500T4 PO (21:04)
[2017-09-10] MEDS ORDERED: ONDA8TAB13 PO (21:04)
[2017-09-10] MEDS ORDERED: OXYC-188 PO (21:04)
[2017-09-10] MEDS ORDERED: METR500T21 PO (21:04)
[2017-09-10 21:11] VITALS: BP 100/70
== END 2017-09-10 21:11 | disposition home or self-care (01) ==
LOC: EDUNIT# 14:49 → ER 14:51
DX: K81.2 Acute cholecystitis with chronic cholecystitis (principal); R48.8 Other symbolic dysfunctions; N99.89 Other postprocedural complications and disorders of genitourinary system; R33.8 Other retention of urine; G43.909 Migraine, unspecified, not intractable, without status migrainosus; F17.210 Nicotine dependence, cigarettes, uncomplicated; Z96.0 Presence of urogenital implants; Z90.710 Acquired absence of both cervix and uterus; Z87.440 Personal history of urinary (tract) infections; Z98.51 Tubal ligation status; Z87.42 Personal history of other diseases of the female genital tract
CPT/HCPCS: 36415; 51701; 70450; 74177; 76705; 80053; 81000; 83690; 85025; 87088; 96361; 96365; 96372

== ENCOUNTER 2017-09-16 05:51 | Outpatient (CLI) | payer BC ==
[~2017-09-16] VITALS: Ht 165.1 cm; Wt 64.4 kg
[~2017-09-16 05:51] MED LIST changes: +CIPR500T4 PO; +METR500T21 PO; +ONDA8TAB13 PO; +OXYC-188 PO
[2017-09-17] MEDS ORDERED: HYDR-34 PO (16:59)
== END 2017-09-16 09:51 ==
LOC: PREOP 05:51
PROVIDERS: ATTEND Surgery
DX: K81.1 Chronic cholecystitis (principal)

== ENCOUNTER 2017-09-17 13:01 | Day surgery (SDC) | payer BC ==
[~2017-09-17] VITALS: Ht 165.1 cm; Wt 64.4 kg
--- OUTSIDE RECORDS SUMMARY | 2017-09-17 13:07 | XMS REPORT | Continuity of Care Document ---
Author Author [facility] Organization [facility] Address Unknown Phone Unavailable Allergies Active Description Code Type Severity Reaction Onset Reported/Identified Relationship to Patient Clinical Status Yes NKANo Known Allergies NKA Miscellaneous Allergy Unknown N/A 03/24/2007 Yes No Known Drug Allergies [id number] Drug Allergy Unknown N/A 09/01/2017 Medications There is no data. 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.9 CARCINOMA IN SITU OF CERVIX, UNSPECIFIED 09/07/2017 MOUNA AUGUSTE MD, Ot D25.1 INTRAMURAL LEIOMYOMA OF UTERUS 09/07/2017 MOUNA AUGUSTE MD, Ot F17.210 NICOTINE DEPENDENCE, CIGARETTES, UNCOMPL 09/07/2017 MOUNA AUGUSTE MD, Ot N39.3 STRESS INCONTINENCE (FEMALE) (MALE) 09/07/2017 MOUNA AUGUSTE MD Ot N80.0 ENDOMETRIOSIS OF UTERUS 09/07/2017 MOUNA AUGUSTE MD, Ot 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.2 ENDOMETRIOSIS OF FALLOPIAN TUBE 09/07/2017 MOUNA AUGUSTE MD, Ot N80.3 ENDOMETRIOSIS OF PELVIC PERITONEUM 09/07/2017 MOUNA AUGUSTE MD, Ot N81.4 UTEROVAGINAL PROLAPSE, UNSPECIFIED 09/07/2017 MOUNA AUGUSTE MD, Ot N83.8 OTH NONINFLAMMATORY DISORD OF OVARY, FAL 09/07/2017 MOUNA AUGUSTE MD, Ot R10.31 RIGHT LOWER QUADRANT PAIN 09/09/2017 MOUNA AUGUSTE MD, Ot D06.9 CARCINOMA IN SITU OF CERVIX, UNSPECIFIED 09/09/2017 MOUNA AUGUSTE MD, Ot D25.1 INTRAMURAL LEIOMYOMA OF UTERUS 09/09/2017 MOUNA AUGUSTE MD, Ot F17.210 NICOTINE DEPENDENCE, CIGARETTES, UNCOMPL 09/09/2017 MOUNA AUGUSTE MD, Ot N39.3 STRESS INCONTINENCE (FEMALE) (MALE) 09/09/2017 MOUNA AUGUSTE MD, Ot N80.0 ENDOMETRIOSIS OF UTERUS 09/09/2017 MOUNA AUGUSTE MD, Ot 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 Results Test Result Range Urine beta human chorionic gonadotropin (hCG) measurement - 09/05/17 11:15 Urine beta human chorionic gonadotropin (hCG) measurement NEGATIVE NEGATIVE Complete blood count (CBC) with automated white blood cell (WBC) differential - 09/05/17 11:40 Blood leukocytes automated count (number/volume) 6.3 10*3/uL 4.3-11.0 Blood erythrocytes automated count (number/volume) 4.00 10*6/uL 4.35-5.85 Venous blood hemoglobin measurement (mass/volume) 13.2 g/dL 11.5-16.0 Blood hematocrit (volume fraction) 37 % 35-52 Automated erythrocyte mean corpuscular volume 93 [foz_us] 80-99 Automated erythrocyte mean corpuscular hemoglobin (mass per erythrocyte) 33 pg 25-34 Automated erythrocyte mean corpuscular hemoglobin concentration measurement ( mass/volume) 36 g/dL 32-36 Automated erythrocyte distribution width ratio 12.3 % 10.0-14.5 Automated blood platelet count (count/volume) 203 10*3/uL 130-400 Automated blood platelet mean volume measurement 11.4 [foz_us] 7.4-10.4 Automated blood neutrophils/100 leukocytes 58 % 42-75 Automated blood lymphocytes/100 leukocytes 29 % 12-44 Blood monocytes/100 leukocytes 11 % 0-12 Automated blood eosinophils/100 leukocytes 3 % 0-10 Automated blood basophils/100 leukocytes 1 % 0-10 Blood neutrophils automated count (number/volume) 3.7 10*3 1.8-7.8 Blood lymphocytes automated count (number/volume) 1.8 10*3 1.0-4.0 Blood monocytes automated count (number/volume) 0.7 10*3 0.0-1.0 Automated eosinophil count 0.2 10*3/uL 0.0-0.3 Automated blood basophil count (count/volume) 0.0 10*3/uL 0.0-0.1 Blood type T Indirect antibody screen panel - 09/05/17 11:40 ABO+Rh group AN [facility] Transfusion band number [id number] [facility] Blood group antibody screen NEGATIVE [facility] Methicillin resistant Staphylococcus aureus (MRSA) screening culture - 11:45 Methicillin resistant Staphylococcus aureus (MRSA) screening culture NEG [facility] Complete blood count (CBC) with automated white blood cell (WBC) differential - 09/07/17 09:41 Blood leukocytes automated count (number/volume) 11.1 10*3/uL 4.3-11.0 Blood erythrocytes automated count (number/volume) 2.98 10*6/uL 4.35-5.85 Venous blood hemoglobin measurement (mass/volume) 9.6 g/dL 11.5-16.0 Blood hematocrit (volume fraction) 29 % 35-52 Automated erythrocyte mean corpuscular volume 98 [foz_us] 80-99 Automated erythrocyte mean corpuscular hemoglobin (mass per erythrocyte) 32 pg 25-34 Automated erythrocyte mean corpuscular hemoglobin concentration measurement ( mass/volume) 33 g/dL 32-36 Automated erythrocyte distribution width ratio 12.4 % 10.0-14.5 Automated blood platelet count (count/volume) 149 10*3/uL 130-400 Automated blood platelet mean volume measurement 11.5 [foz_us] 7.4-10.4 Automated blood neutrophils/100 leukocytes 62 % 42-75 Automated blood lymphocytes/100 leukocytes 28 % 12-44 Blood monocytes/100 leukocytes 10 % 0-12 Automated blood eosinophils/100 leukocytes 0 % 0-10 Automated blood basophils/100 leukocytes 0 % 0-10 Blood neutrophils automated count (number/volume) 6.8 10*3 1.8-7.8 Blood lymphocytes automated count (number/volume) 3.1 10*3 1.0-4.0 Blood monocytes automated count (number/volume) 1.1 10*3 0.0-1.0 Automated eosinophil count 0.0 10*3/uL 0.0-0.3 Automated blood basophil count (count/volume) 0.0 10*3/uL 0.0-0.1 Whole blood basic metabolic panel - 09/07/17 09:41 Serum or plasma sodium measurement (moles/volume) 138 mmol/L 135-145 Serum or plasma potassium measurement (moles/volume) 3.8 mmol/L 3.6-5.0 Serum or plasma chloride measurement (moles/volume) 105 mmol/L 98-107 Carbon dioxide 26 mmol/L 21-32 Serum or plasma anion gap determination (moles/volume) 7 mmol/L 5-14 Serum or plasma urea nitrogen measurement (mass/volume) 9 mg/dL 7-18 Serum or plasma creatinine measurement (mass/volume) 0.80 mg/dL 0.60-1.30 Serum or plasma urea nitrogen/creatinine mass ratio 11 NRG Serum or plasma creatinine measurement with calculation of estimated glomerular filtration rate > NRG Serum or plasma glucose measurement (mass/volume) 90 mg/dL 70-105 Serum or plasma calcium measurement (mass/volume) 8.7 mg/dL 8.5-10.1 Comprehensive metabolic panel - 09/07/17 09:41 Serum or plasma sodium measurement (moles/volume) 138 mmol/L 135-145 Serum or plasma potassium measurement (moles/volume) 3.8 mmol/L 3.6-5.0 Serum or plasma chloride measurement (moles/volume) 105 mmol/L 98-107 Carbon dioxide 24 mmol/L 21-32 Serum or plasma anion gap determination (moles/volume) 9 mmol/L 5-14 Serum or plasma urea nitrogen measurement (mass/volume) 10 mg/dL 7-18 Serum or plasma creatinine measurement (mass/volume) 0.78 mg/dL 0.60-1.30 Serum or plasma urea nitrogen/creatinine mass ratio 13 NRG Serum or plasma creatinine measurement with calculation of estimated glomerular filtration rate > NRG Serum or plasma glucose measurement (mass/volume) 91 mg/dL 70-105 Serum or plasma calcium measurement (mass/volume) 8.7 mg/dL 8.5-10.1 Serum or plasma total bilirubin measurement (mass/volume) 0.2 mg/dL 0.1-1.0 Serum or plasma alkaline phosphatase measurement (enzymatic activity/volume) 29 U/L 40-136 Serum or plasma aspartate aminotransferase measurement (enzymatic activity/ volume) 19 U/L 5-34 Serum or plasma alanine aminotransferase measurement (enzymatic activity/volume ) 12 U/L 0-55 Serum or plasma protein measurement (mass/volume) 5.8 g/dL 6.4-8.2 Serum or plasma albumin measurement (mass/volume) 3.7 g/dL 3.2-4.5 Complete urinalysis with reflex to culture - 09/10/17 16:25 Urine color determination YELLOW NRG Urine clarity determination CLEAR NRG Urine pH measurement by test strip 8 5-9 Specific gravity of urine by test strip 1.015 1.016- 1.022 Urine protein assay by test strip, semi-quantitative NEGATIVE NEGATIVE Urine glucose detection by automated test strip NEGATIVE NEGATIVE Erythrocytes detection in urine sediment by light microscopy 3+ NEGATIVE Urine ketones detection by automated test strip NEGATIVE NEGATIVE Urine nitrite detection by test strip POSITIVE NEGATIVE Urine total bilirubin detection by test strip NEGATIVE NEGATIVE Urine urobilinogen measurement by automated test strip (mass/volume) 1 mg/dL NORMAL Urine leukocyte esterase detection by dipstick 3+ NEGATIVE Automated urine sediment erythrocyte count by microscopy (number/high power field) [HPF] NRG Automated urine sediment leukocyte count by microscopy (number/high power field ) [HPF] NRG Bacteria detection in urine sediment by light microscopy FEW NRG Squamous epithelial cells detection in urine sediment by light microscopy 0-2 NRG Crystals detection in urine sediment by light microscopy NONE NRG Casts detection in urine sediment by light microscopy NONE NRG Mucus detection in urine sediment by light microscopy NEGATIVE NRG Complete urinalysis with reflex to culture YES NRG Bacterial urine culture - 09/10/17 16:25 URINE CULTURE RESULTS 10,000/ML - 100,000/ML NRG Complete blood count (CBC) with automated white blood cell (WBC) differential - 09/10/17 16:40 Blood leukocytes automated count (number/volume) 10.4 10*3/uL 4.3-11.0 Blood erythrocytes automated count (number/volume) 3.34 10*6/uL 4.35-5.85 Venous blood hemoglobin measurement (mass/volume) 10.8 g/dL 11.5-16.0 Blood hematocrit (volume fraction) 31 % 35-52 Automated erythrocyte mean corpuscular volume 93 [foz_us] 80-99 Automated erythrocyte mean corpuscular hemoglobin (mass per erythrocyte) 32 pg 25-34 Automated erythrocyte mean corpuscular hemoglobin concentration measurement ( mass/volume) 35 g/dL 32-36 Automated erythrocyte distribution width ratio 11.9 % 10.0-14.5 Automated blood platelet count (count/volume) 176 10*3/uL 130-400 Automated blood platelet mean volume measurement 11.4 [foz_us] 7.4-10.4 Automated blood neutrophils/100 leukocytes 71 % 42-75 Automated blood lymphocytes/100 leukocytes 16 % 12-44 Blood monocytes/100 leukocytes 12 % 0-12 Automated blood eosinophils/100 leukocytes 2 % 0-10 Automated blood basophils/100 leukocytes 0 % 0-10 Blood neutrophils automated count (number/volume) 7.4 10*3 1.8-7.8 Blood lymphocytes automated count (number/volume) 1.6 10*3 1.0-4.0 Blood monocytes automated count (number/volume) 1.2 10*3 0.0-1.0 Automated eosinophil count 0.2 10*3/uL 0.0-0.3 Automated blood basophil count (count/volume) 0.0 10*3/uL 0.0-0.1 Comprehensive metabolic panel - 09/10/17 16:40 Serum or plasma sodium measurement (moles/volume) 141 mmol/L 135-145 Serum or plasma potassium measurement (moles/volume) 3.6 mmol/L 3.6-5.0 Serum or plasma chloride measurement (moles/volume) 107 mmol/L 98-107 Carbon dioxide 29 mmol/L 21-32 Serum or plasma anion gap determination (moles/volume) 5 mmol/L 5-14 Serum or plasma urea nitrogen measurement (mass/volume) 6 mg/dL 7-18 Serum or plasma creatinine measurement (mass/volume) 0.65 mg/dL 0.60-1.30 Serum or plasma urea nitrogen/creatinine mass ratio 9 NRG Serum or plasma creatinine measurement with calculation of estimated glomerular filtration rate > NRG Serum or plasma glucose measurement (mass/volume) 77 mg/dL 70-105 Serum or plasma calcium measurement (mass/volume) 9.1 mg/dL 8.5-10.1 Serum or plasma total bilirubin measurement (mass/volume) 0.6 mg/dL 0.1-1.0 Serum or plasma alkaline phosphatase measurement (enzymatic activity/volume) 31 U/L 40-136 Serum or plasma aspartate aminotransferase measurement (enzymatic activity/ volume) 19 U/L 5-34 Serum or plasma alanine aminotransferase measurement (enzymatic activity/volume ) 16 U/L 0-55 Serum or plasma protein measurement (mass/volume) 6.2 g/dL 6.4-8.2 Serum or plasma albumin measurement (mass/volume) 3.9 g/dL 3.2-4.5 Lipase - 09/10/17 16:40 Lipase 11 U/L 8-78 Encounters ACCT No. Visit Date/Time Discharge Status Pt. Type Provider Facility Loc./Unit Complaint [id number] 09/10/2017 14:51:00 09/10/2017 21:11:00 DIS Emergency BERRY HOOPER [facility] ER LEG NUMBNESS, L SIDE NUMBNESS [id number] 09/05/2017 11:08:00 09/07/2017 13:40:00 DIS Outpatient MOUNA AUGUSTE MD [facility] CIN3,CYSTOCELE, DUB [id number] 09/01/2017 05:34:00 09/01/2017 12:22:00 DIS Outpatient MOUNA AUGUSTE MD [facility] PREOP CIN3,CYSTOCELE, DUB [id number] 02/03/2014 13:46:00 02/03/2014 15:42:00 DIS Emergency HENRY THOMPSON APRN [facility] ER VOMITING/DIARRHEA
[2017-09-17 13:08] VITALS: BP 116/61
[2017-09-17] MEDS ORDERED: LACTATED RINGERS 1,000 ML IV PRN (13:23)
[2017-09-17] MEDS ORDERED: FAMOTIDINE 20MG/2ML IV (PEPCID) IV ONE (13:30)
[2017-09-17] MEDS ORDERED: SCOPOLAMINE 1.5 MG (TRANSDERM-SCOP) PATCH TOP ONE (13:30)
[2017-09-17] MEDS ORDERED: ONDANSETRON 4 MG/2 ML (SDV) Z0FRAN IV ONE (13:30)
[2017-09-17] MEDS ORDERED: ceFAZolin INJECTION 1,000 MG in NS (IVPB) 100 ML IV ONE (13:30)
[2017-09-17] MEDS ORDERED: proPOfol 200 MG/20 ML (DIPRIVAN) VIAL IV ONE (13:31)
[2017-09-17] MEDS ORDERED: SEVOFLURANE (ULTANE) 15 ML INHAL SOLN ONE ×5 (13:31→16:53)
[2017-09-17] MEDS ORDERED: ROCURONIUM 10 MG/ML 5 ML SYRINGE IV ONE (13:31)
[2017-09-17] MEDS ORDERED: LIDOCAINE PF 2% 5 ML (XYLOCAINE) VIAL ONE (13:31)
[2017-09-17] MEDS ORDERED: DEXAMETHASONE 10 MG/ML (DECADRON) 1 ML VIAL ONE (13:31)
[2017-09-17] MEDS ORDERED: fentaNYL INJECTION 100 MCG/2 ML AMP ONE ×2 (13:32→16:17)
[2017-09-17] MEDS ORDERED: MIDAZOLAM 2 MG/2 ML (VERSED) VIAL ONE (13:32)
[2017-09-17] MEDS: LACTATED RINGERS 1,000 ML IV PRN ×3 (13:58→16:20)
--- NOTE | 2017-09-17 14:26 | Progress Note-Pre Operative ---
Pre-Operative Progress Note H&P Reviewed The H&P was reviewed, patient examined and no changes noted. Date Seen by Provider: Sep 17, 2017 Time Seen by Provider: 14:15 Date H&P Reviewed: Sep 17, 2017 Time H&P Reviewed: 14:15 Pre-Operative Diagnosis: chronic cholecystitis VLADIMIR MATTHEWS MD Sep 17, 2017 2:26 pm
[2017-09-17] MEDS ORDERED: ACETAMINOPHEN 325 MG TABLET/CAPLET (TYLENOL) PO PRN (14:30)
[2017-09-17] MEDS ORDERED: morphine INJ 10 MG/ML 1ML (SYR OR VIAL) IVP PRN (14:30)
[2017-09-17] MEDS ORDERED: ONDANSETRON 4 MG/2 ML (SDV) Z0FRAN IVP PRN ×2 (14:30→17:15)
[2017-09-17] MEDS ORDERED: HYDROcodone/APAP 5 MG/325 MG (LORTAB) TAB PO ONE (14:30)
[2017-09-17] MEDS ORDERED: BUP/EPI 0.5% 1:200,000 (SENSORCAINE) 30 ML VIAL ONE (14:54)
[2017-09-17] MEDS ORDERED: MEPERIDINE (DEMEROL) INJ 50 MG/ML ONE (16:15)
[2017-09-17] MEDS ORDERED: HYDROmorphone (DILAUDID) 2 MG/ML VIAL ONE (16:16)
[2017-09-17] MEDS ORDERED: GLYCOPYRROLATE 0.2 MG/ML (ROBINUL) 2 ML VIAL ONE (16:33)
[2017-09-17] MEDS ORDERED: ESMOLOL 100 MG/10 ML (BREVIBLOC) VIAL ONE (16:33)
[2017-09-17] MEDS ORDERED: NEOSTIGMINE 1 MG/ML 5 ML SYRINGE ONE (16:33)
--- NOTE | 2017-09-17 16:58 | Progress Note-Post Operative ---
Post-Operative Progess Note Surgeon (s)/Shoe Repair Supervisor (s) Surgeon VLADIMIR MATTHEWS MD Shoe Repair Supervisor: aylin morel STEEL P[employer]ER Pre-Operative Diagnosis chronic cholecystitis Post-Operative Diagnosis same Procedure & Operative Findings Date of Procedure 09/17/17 Procedure Performed/Findings laparoscopic cholecystectomy Anesthesia Type GET Estimated Blood Loss Estimated blood loss (mL): minimal Specimens/Packing Specimens Removed gallbladder VLADIMIR MATTHEWS MD Sep 17, 2017 4:58 pm
[2017-09-17] MEDS ORDERED: HYDR-34 PO (16:59)
--- NOTE | 2017-09-17 17:01 | Discharge Inst-Surgical ---
D/C Lap Instructions-CASSIE New, Converted, or Re-Newed RX: RX on Chart Follow Up Appt in 2 weeks Activity as tolerated No driving for 24 hours No [address] while on pain medications Incentive Spirometry use every 2 hours while awake Regular Diet Symptoms to Report: Fever over 101 degree F, Nausea/Vomiting Infection Signs and Symptoms to report: Increased redness, Foul odor of wound, Increased drainage Bathing instructions: May shower Operative Area Clean/Dry; Keep incision clean/dry If any problems/questions: Contact your physician or go to Emergency Room VLADIMIR MATTHEWS MD Sep 17, 2017 5:01 pm
[2017-09-17] MEDS ORDERED: fentaNYL INJECTION 100 MCG/2 ML AMP IVP PRN (17:15)
[2017-09-17] MEDS ORDERED: MEPERIDINE (DEMEROL) INJ 50 MG/ML IVP PRN (17:15)
[2017-09-17 17:49] VITALS: BP 114/65
--- NOTE | 2017-09-17 18:27 | Anesthesia-General Post-Op ---
General Patient Condition Mental Status/LOC: Same as Preop Cardiovascular: Satisfactory Nausea/Vomiting: Absent Respiratory: Satisfactory Pain: Controlled Complications: Absent Post Op Complications Complications None Follow Up Care/Instructions Patient Instructions None needed. Anesthesia/Patient Condition Patient Condition Patient is doing well, no complaints, stable vital signs, no apparent adverse anesthesia problems. No complications reported per nursing. GAURI MENDOZA CRNA Sep 17, 2017 18:27
[2017-09-17 18:30] VITALS: BP 109/82
[2017-09-17 19:15] VITALS: BP 107/55
[2017-09-17 19:40] VITALS: BP 107/55
--- NOTE | 2017-09-17 22:14 | OPERATIVE REPORT ---
DATE OF SERVICE: 09/17/2017 PREOPERATIVE DIAGNOSIS: Symptomatic chronic cholecystitis. POSTOPERATIVE DIAGNOSIS: Chronic acalculous cholecystitis. PROCEDURE: Laparoscopic cholecystectomy. SURGEON: Dr. Matthews. ANESTHESIA: General endotracheal. ESTIMATED BLOOD LOSS: Minimal. FINDINGS: Chronic mild gallbladder wall inflammation with thick bile. No gallstones. Normal appearing liver. DISPOSITION: The patient tolerated the procedure well. INDICATIONS: The patient is a 32-year-old female who underwent a partial hysterectomy as well as bladder suspension procedure approximately 2 weeks ago. She reports that after the surgery, she presented with pain in the right upper abdominal quadrant. An ultrasound was performed which showed gallbladder wall thickening as well as pericholecystic fluid consistent with a chronic acalculous cholecystitis. Upon further questioning, she reports that she may have had some minor episodes before in the past. Due to her previous surgery and lack of p.o. intake, this most likely caused a biliary stasis and the symptomatic chronic acalculous cholecystitis. DESCRIPTION OF PROCEDURE: The patient was brought to the operating room, laid supine on the table. After adequate IV pain and sedative medications and general endotracheal intubation, the abdomen was prepped and draped in standard surgical fashion. A 0.5% Marcaine with epinephrine was used to incise overlying skin in the left upper abdominal quadrant and a small transverse skin incision made using a 15 blade. An 0 silk suture was applied to the medial aspect incision for retraction and a Veress needle inserted with a low opening pressure of 0 mmHg and the abdomen was insufflated to 15 mmHg pressure. The Veress needle removed and a 5 mm Xcel trocar placed followed by a 5 mm 45 degree angle laparoscope visualizing the peritoneal cavity. A four-quadrant abdominal exploration was performed. There was a slightly dilated gallbladder with mild gallbladder wall thickening. The liver appeared normal as did the stomach and omentum. Under direct visualization, we then proceed to place a supraumbilical 10 mm port along the previous port site. We then proceed to place a right upper abdominal quadrant 5 mm port after the skin and peritoneal lining were anesthetized using 0.5% Marcaine with epinephrine. The patient was then placed in reverse Trendelenburg position as well as plane right side up, left side down. The fundus of the gallbladder was then retracted anteriorly and superiorly. The hepatoduodenal ligament was then opened using electrocautery as well as blunt dissection and hook instrument. The entire critical view of safety was identified including the triangle of Calot as well as the cystic duct and artery as the only two structures going into the gallbladder as well as the cystic plate behind the proximal gallbladder. A timeout was then taken and the cystic duct and artery were then clipped proximally and distally and cut with EndoShears. The gallbladder was then dissected off the liver bed using electrocautery and hook instrument with visualization of good hemostasis as well as no leaking ducts of Luschka. The gallbladder was removed through the 10 mm port site using EndoCatch bag. The 10 mm port site fascia and peritoneum were then closed under direct visualization using Chidi-Tam device and #0 Vicryl suture. The abdomen was desufflated and remaining ports removed. All skin incisions were closed using 4-0 Monocryl running subcuticular sutures. Wounds were then cleaned and covered with Dermabond. The patient tolerated the procedure well. We will start IV and oral pain medication as well as a clear liquid diet. Once she is tolerating clears, has good pain control with oral pain medications, and ambulated well, we will discharge her home. Job ID: [id number] DocumentID: [id number] Dictated Date: 09/17/2017 17:10:34 Jetting Machine Operator Date: 09/17/2017 22:14:21 Dictated By: VLADIMIR MATTHEWS MD
== END 2017-09-17 19:40 | disposition home or self-care (01) ==
LOC: SDC 13:01
PROVIDERS: ATTEND Surgery
DX: K81.1 Chronic cholecystitis (principal); Z11.2 Encounter for screening for other bacterial diseases; F17.210 Nicotine dependence, cigarettes, uncomplicated; F17.290 Nicotine dependence, other tobacco product, uncomplicated
CPT/HCPCS: 87081